=== PATIENT | female | born 1960 ===

== ENCOUNTER 2017-11-27 22:26 | Emergency (ER) | payer MEDICAID, OTHER ==
[2017-11-27 22:40] VITALS: RESP 16
[2017-11-27] MEDS ORDERED: Potassium Chloride 20 mEq 50 ML IVPB ONE (22:46)
[2017-11-27] MEDS ORDERED: Sodium Chloride 0.9% 1,000 ML IV STA (22:46)
--- NOTE | 2017-11-27 22:56 | ED PDOC ---
HPI: Abdomen Time Seen by Provider: 11/27/17 22:41 Chief Complaint (Nursing): Abdominal Pain History Per: Patient History/Exam Limitations: no limitations Onset/Duration Of Symptoms: Days Outside of [place] travel?: No Current Symptoms Are (Timing): Still Present Location Of Pain/Discomfort: Diffuse Quality Of Discomfort: Cramping Associated Symptoms: Nausea, Vomiting, Diarrhea. denies: Fever, Chills, Back Pain Additional Complaint(s): Hx of hypthyroidism, hypokalemia presenting with nausea, vomiting, diarrhea, and hand/feet cramping, states that since Sunday, she has had profuse watery diarrhea every 15 minutes, today had 6 episodes of non bloody, non bilious vomiting as well. States she also experienced bilateral hand and feet cramping that she states is consistent with her symptoms of low potassium in the past. States she felt warm at home but did not take temperature, no recent travel, sick contacts, or recent ABx usage. in past. Past Medical History Reviewed: Historical Data, Vital Signs Vital Signs: Last Vital Signs Temp 98.3 F 11/27/17 22:36 Pulse 87 11/28/17 01:05 Resp 16 11/27/17 22:36 BP 120/71 11/28/17 01:05 Pulse Ox 97 11/28/17 01:05 - Medical History PMH: No Chronic Diseases - Family History Family History: States: No Known Family Hx - Home Medications Home Medications: Ambulatory Orders Medication Instructions Recorded Ondansetron [Zofran] 4 mg PO Q8H #12 tab 11/28/17 - Allergies Allergies/Adverse Reactions: Allergies Allergy/AdvReac Type Severity Reaction Status Date / Time No Known Allergies Allergy Verified 11/27/17 22:46 Review of Systems ROS Statement: Except As Marked, All Systems Reviewed And Found Negative Gastrointestinal: Positive for: Nausea, Vomiting, Abdominal Pain, Diarrhea Physical Exam - Reviewed Nursing Documentation Reviewed: Yes Vital Signs Reviewed: Yes - Physical Exam Appears: Positive for: Well, Non-toxic, Uncomfortable (Active vomiting) Head Exam: Positive for: ATRAUMATIC, NORMAL INSPECTION, NORMOCEPHALIC Skin: Positive for: Normal Color, Warm, DRY Eye Exam: Positive for: EOMI, Normal appearance, PERRL ENT: Positive for: Normal ENT Inspection Neck: Positive for: Normal, Painless ROM Cardiovascular/Chest: Positive for: Regular Rate, Rhythm Respiratory: Positive for: CNT, Normal Breath Sounds Gastrointestinal/Abdominal: Positive for: Normal Exam, Bowel Sounds, Soft. Negative for: Tenderness Back: Positive for: Normal Inspection Extremity: Positive for: Normal ROM Neurologic/Psych: Positive for: Alert, Oriented - Laboratory Results Result Diagrams: 11/27/17 23:10 11/27/17 23:10 - ECG O2 Sat by Pulse Oximetry: 96 Pulse Ox Interpretation: Normal Medical Decision Making Medical Decision Makin:40PM A/P: Hx of hypothyrodism and hypokalemia presenting with abdominal pain, nausea , vomiting, and extremity cramping -patient exhibiting signs and symptoms of gastroenteritis with hypokalemia, not concerned for invasive/bacterial infection at this time -benign belly exam, normal vitals -will treat with fluids, zofran, potassium -re-eval 2AM -Patient no longer complaining of cramps, states her nausea and vomiting are much better -Patient appears very comfortable, vitals improved, will d/c patient -advised her to followup with PMD in 1 - 2 days, return precautions discussed Disposition - Clinical Impression Clinical Impression: Hypokalemia, Gastroenteritis - Disposition Referrals: Hellen Zimmerman MD [Medical Doctor] - Disposition: Routine/Home Disposition Time: 02:07 Condition: IMPROVED Prescriptions: Ondansetron [Zofran] 4 mg PO Q8H #12 tab Instructions: Hypokalemia (DC), Gastroenteritis (ED), High Potassium Diet Forms: Content [employer] (Qatari) Print Language: MARTIN[place]QU[place]
[2017-11-27] MEDS ORDERED: Potassium Chloride 20 mEq 100 ML ONE (23:11)
[2017-11-27 23:13] LABS: HEMOGLOBIN 13.6 g/dL (12.0-16.0); MEAN CELL VOLUME 85.9 fl (81.0-99.0); MEAN CORPUSCULAR HEMOGLOBIN 28.7 pg (27.0-31.0); MEAN CORPUSCULAR HGB CONC 33.4 g/dL (33.0-37.0); RBC 4.73 Mil/uL (3.80-5.20); WHITE BLOOD COUNT 11.4 K/uL (4.8-10.8)
[2017-11-27 23:18] LABS: VENOUS BLOOD GAS BASE EXCESS 1.4 mmol/L (0.0-2.0); VENOUS BLOOD GAS PCO2 35 mmHg (40-60); VENOUS BLOOD GAS PO2 29 mm/Hg (30-55); VENOUS BLOOD PH 7.46 (7.32-7.43)
[2017-11-27 23:23] LABS: ALB/GLOB RATIO 1.1 (1.0-2.1); ALBUMIN 4.8 g/dL (3.5-5.0); ALT/SGPT 27 U/L (9-52); AST/SGOT 28 U/L (14-36); BILIRUBIN,DIRECT 0.3 mg/ml (0.0-0.4); BLOOD UREA NITROGEN 12 mg/dl (7-17); CALCIUM 8.6 mg/dL (8.4-10.2); GFR AFRICAN-AMERICAN > 60; GFR NON-AFRICAN AMERICAN > 60; LIPASE 122 U/L (23-300)
[2017-11-27 23:35] LABS: SQUAMOUS EPITHIAL 1 /hpf (0-5); URINE BACTERIA OCC (<OCC); URINE BILIRUBIN NEGATIVE (NEGATIVE); URINE BLOOD NEGATIVE (NEGATIVE); URINE CLARITY CLEAR (Clear); URINE COLOR STRAW (YELLOW); URINE GLUCOSE (UA) NEG (Normal); URINE LEUKOCYTE ESTERASE SMALL Leu/uL (Negative); URINE PROTEIN NEGATIVE (NEGATIVE); URINE UROBILINOGEN 0.2-1.0 mg/dL (0.2-1.0)
[2017-11-28] MEDS ORDERED: Potassium Chloride 20 mEq 50 ML IVPB ONE (01:10)
[2017-11-28 02:25] VITALS: BP 120/70; PULSE 86; TEMP 98.2; O2SAT 98
== END 2017-11-28 02:25 | disposition home or self-care (01) ==
LOC: H.ER 22:26
DX: E87.6 Hypokalemia (principal); K52.9 Noninfective gastroenteritis and colitis, unspecified
CPT/HCPCS: 80048; 80076; 81003; 82803; 83690; 84436; 84443; 85027; 96361; 96365; 96374; 96375; 99284; J1885; J2405; J3480; J7030